=== PATIENT | male | born 1955 | race Caucasian/White ===

== ENCOUNTER → 2016-12-04 | Day surgery (SDC) | payer OTHER ==
[~2016-12-04] MED LIST: ATROPINE SULFATE 1% OPHT SOLN 2 ML BTL ONE; CARD1TAB PO; CLON1TAB PO; COZA50TA PO; CYCL1TAB29 PO; DEXAMETHASONE SOD PHOS 4 MG/ML VIAL ONE; EPINEPHrine HCL (1:1000) 1 MG/ML VIAL ONE; FLURBIPROFEN 0.03% OPHT SOLN 2.5 ML BTL ONE; HYALURONIDASE/LIDOCAINE/BUPIVACAINE 11 ML SYR TL ONE; JANU50TA8 PO; LACTATED RINGER'S 1000 ML INJ 1,000 ML ONE; LANTINJ SQ; MIDAZOLAM HCL 2 MG/2 ML VIAL ONE; NEOMYCIN/POLYMYXIN/DEXAMETHASONE OPTH OINT 3.5 GM TUBE ONE; PHENYLEPHRINE HCL 2.5 % OPTH SOLN 15 ML BTL ONE; SODIUM CHLORIDE 0.9% INJ 10 ML ONE; TETRACAINE 0.5% OPTH SOLN 4 ML BTL ONE; TROPICAMIDE 1% OPHT SOLN 15 ML BTL ONE; ceFAZolin INJ 1,000 MG VIAL ONE
--- NOTE | 2016-12-08 10:29 | TN ---
cc: MARTELL VÁZQUEZ MD DATE OF : 57 DATE OF SURGERY: 12/04/2016 PREOPERATIVE DIAGNOSIS: Proliferative diabetic retinopathy with nonclearing vitreous hemorrhage, right eye. POSTOPERATIVE DIAGNOSIS: Proliferative diabetic retinopathy with nonclearing vitreous hemorrhage, right eye. OPERATION: Pars plana vitrectomy and endolaser, right eye. ANESTHESIA: MAC. SURGEON: Martell Vázquez MD. COMPLICATIONS: None. PROCEDURE: After informed consent was obtained, the patient was brought to the operating room and placed under brief anesthesia with propofol. 10 cc of a 50/50 mixture of 0.75% Marcaine and 2% lidocaine was placed in a modified [place] Lint lid block as well as a peribulbar injection. The patient was then prepared and draped in the usual sterile fashion. A wire lid speculum was placed in the patient's right eye. 23 gauge vitrectomy cannulas were then placed in the lower temporal, supratemporal and supranasal quadrants 3 millimeters posterior to the corneoscleral limbus. Infusion cannula was placed lower temporally. Core vitrectomy was then performed. There was already a posterior vitreous detachment and no significant membranes were present. There were vitrectomies carried out as far as possible to the vitreous base. Endolaser was used to place panretinal photocoagulation. Careful indirect ophthalmoscopy with scleral depression was then performed and no peripheral retinal breaks were noted. The three vitrectomy cannulas were then removed. Subconjunctival injections of dexamethasone and Ancef were placed. An atropine drop, Maxitrol ointment, patch and shield were then applied. The patient tolerated the procedure well. There were no complications. She will follow up tomorrow in our [facility] office. Martell Vázquez MD TAB/JENSEN /9:17 AM /10:25 AM
== END | disposition home or self-care (01) ==
LOC: ESDC 12:18
PROVIDERS: ATTEND Ophthalmology Retina Specialist
DX: E11.3591 Type 2 diabetes mellitus with proliferative diabetic retinopathy without macular edema, right eye (principal); H43.11 Vitreous hemorrhage, right eye; Z79.4 Long term (current) use of insulin
CPT/HCPCS: 00145; 67039; 82948; J0171; J0690; J1100; J2250; J7120